=== PATIENT | male | born 1940 | race Caucasian/White ===

== ENCOUNTER 2020-06-24 11:19 | Outpatient (CLI) | payer MEDICARE, BC, SELFPAY ==
--- NOTE | 2020-06-24 11:31 | XR_ITS ---
WS: [id number] Chest with right rib detail, 06/24/2020 Clinical Data: fall with right rib pain Comparison: None. Findings: The lungs show no nodules, masses, or effusions. The heart is normal. No pneumonia or pneumothorax is seen. The aortic arch and descending aorta show calcification and tortuosity. The ribs are intact. No rib fractures seen. No subcutaneous emphysema is present. XR/XR ribs RT mn 3V w [id number] Impression: Negative chest with right rib detail.
--- NOTE | 2020-06-24 11:31 | XR_ITS ---
WS: [id number] Right shoulder, 3 views, 06/24/2020 Clinical Data: Fall with right shoulder pain Comparison: None. Findings: No fractures or dislocations are seen. The AC joint is normal. The adjacent right clavicle, right sca pula and ribs are normal. The soft tissues are unremarkable. XR/XR shoulder RT min 2V* [id number] Impression: Negative right shoulder.
--- NOTE | 2020-06-24 11:31 | XR_ITS ---
WS: [id number] Right elbow, 3 views, 06/24/2020 Clinical Data: fall with swelling and pain right arm Comparison: None. Findings: No fractures or dislocations are seen. The radial head is normal. The soft tissues are unremarkable. There is a small olecranon spur. XR/XR elbow RT min 3V* [id number] Impression: Negative right elbow.
== END 2020-06-24 11:20 | disposition home or self-care (01) ==
LOC: RAD 11:24
PROVIDERS: Visit Provider Family Medicine Adult Medicine
DX: R07.81 Pleurodynia (principal); M25.511 Pain in right shoulder; M79.601 Pain in right arm; M79.89 Other specified soft tissue disorders; W19.XXXA Unspecified fall, initial encounter
CPT/HCPCS: 71101; 73030; 73080

== ENCOUNTER → 2020-11-04 12:36 | Outpatient (BNVA) | payer MEDICARE, BC, SELFPAY | PROVIDERS: PCP Family Medicine Adult Medicine; Visit Provider Family Medicine | DX: E11.51 Type 2 diabetes mellitus with diabetic peripheral angiopathy without gangrene (principal); R19.5 Other fecal abnormalities; I70.209 Unspecified atherosclerosis of native arteries of extremities, unspecified extremity; E78.5 Hyperlipidemia, unspecified; K92.2 Gastrointestinal hemorrhage, unspecified; Z95.5 Presence of coronary angioplasty implant and graft; E78.2 Mixed hyperlipidemia; G40.909 Epilepsy, unspecified, not intractable, without status epilepticus; I10 Essential (primary) hypertension | CPT/HCPCS: 80053; 80061; 83036; 85025 ==

== ENCOUNTER → 2020-11-13 10:40 | Outpatient (BNVA) | payer MEDICARE, BC, SELFPAY | PROVIDERS: PCP Family Medicine Adult Medicine; Visit Provider Family Medicine | DX: E11.51 Type 2 diabetes mellitus with diabetic peripheral angiopathy without gangrene (principal); I70.209 Unspecified atherosclerosis of native arteries of extremities, unspecified extremity; G40.909 Epilepsy, unspecified, not intractable, without status epilepticus; E78.2 Mixed hyperlipidemia; K92.2 Gastrointestinal hemorrhage, unspecified | CPT/HCPCS: 36416; 82962 ==

== ENCOUNTER → 2020-11-27 10:19 | Outpatient (BNVA) | payer MEDICARE, BC, SELFPAY | PROVIDERS: PCP Family Medicine Adult Medicine; Visit Provider Family Medicine | DX: E11.51 Type 2 diabetes mellitus with diabetic peripheral angiopathy without gangrene (principal); I70.209 Unspecified atherosclerosis of native arteries of extremities, unspecified extremity | CPT/HCPCS: 36416; 82962 ==

== ENCOUNTER → 2021-03-16 16:12 | Outpatient (BNVA) | payer MEDICARE, BC, SELFPAY | PROVIDERS: PCP Family Medicine Adult Medicine; Visit Provider Family Medicine | DX: E11.51 Type 2 diabetes mellitus with diabetic peripheral angiopathy without gangrene (principal); I10 Essential (primary) hypertension; I70.209 Unspecified atherosclerosis of native arteries of extremities, unspecified extremity; L02.212 Cutaneous abscess of back [any part, except buttock and flank]; I48.20 Chronic atrial fibrillation, unspecified | CPT/HCPCS: 80053; 83036; 85025 ==

== ENCOUNTER → 2022-04-12 15:21 | Outpatient (BNVA) | payer MEDICARE, BC, SELFPAY | PROVIDERS: PCP Family Medicine Adult Medicine; Visit Provider Family Medicine | DX: E78.5 Hyperlipidemia, unspecified (principal); I10 Essential (primary) hypertension; E11.51 Type 2 diabetes mellitus with diabetic peripheral angiopathy without gangrene; I70.209 Unspecified atherosclerosis of native arteries of extremities, unspecified extremity; L02.212 Cutaneous abscess of back [any part, except buttock and flank] | CPT/HCPCS: 80053; 83036; 85025 ==

== ENCOUNTER → 2022-07-26 10:08 | Outpatient (BNVA) | payer MEDICARE, BC, SELFPAY | PROVIDERS: PCP Family Medicine; Visit Provider Family Medicine | DX: E11.51 Type 2 diabetes mellitus with diabetic peripheral angiopathy without gangrene (principal); I70.209 Unspecified atherosclerosis of native arteries of extremities, unspecified extremity; I10 Essential (primary) hypertension; I48.20 Chronic atrial fibrillation, unspecified; Z95.5 Presence of coronary angioplasty implant and graft; K92.2 Gastrointestinal hemorrhage, unspecified | CPT/HCPCS: 80048; 83036 ==

== ENCOUNTER → 2023-05-04 11:34 | Outpatient (BNVA) | payer MEDICARE, BC, SELFPAY | PROVIDERS: PCP Family Medicine; Visit Provider Clinical Nurse Specialist Adult Health | DX: L02.11 Cutaneous abscess of neck (principal) | CPT/HCPCS: 87070; 87205 ==

== ENCOUNTER → 2023-05-19 11:20 | Outpatient (BNVA) | payer MEDICARE, BC, SELFPAY | PROVIDERS: PCP Family Medicine; Visit Provider Family Medicine | DX: E11.51 Type 2 diabetes mellitus with diabetic peripheral angiopathy without gangrene (principal); I70.209 Unspecified atherosclerosis of native arteries of extremities, unspecified extremity; L02.11 Cutaneous abscess of neck; I10 Essential (primary) hypertension | CPT/HCPCS: 82962 ==

== ENCOUNTER → 2023-09-20 13:01 | Outpatient (BNVA) | payer MEDICARE, BC, SELFPAY | PROVIDERS: PCP Family Medicine; Visit Provider Family Medicine | DX: I10 Essential (primary) hypertension (principal); E11.51 Type 2 diabetes mellitus with diabetic peripheral angiopathy without gangrene; I70.209 Unspecified atherosclerosis of native arteries of extremities, unspecified extremity; I48.20 Chronic atrial fibrillation, unspecified; E13.51 Other specified diabetes mellitus with diabetic peripheral angiopathy without gangrene; B35.9 Dermatophytosis, unspecified | CPT/HCPCS: 80053; 85025 ==

== ENCOUNTER 2023-10-21 09:00 | Emergency (ER) | payer MEDICARE, BC, SELFPAY ==
[2023-10-21 09:04] VITALS: BP 113/72; PULSE 73; RESP 18; O2SAT 94; BMI 3515.0
[2023-10-21 09:30] VITALS: BP 119/68; PULSE 79; RESP 18; O2SAT 95
--- NOTE | 2023-10-21 09:33 | W.ED.NEUROSD ---
HPI - Neuro Symptoms/Deficit General: Chief Complaint: Neuro Symptoms/Deficit Stated Complaint: generalized weakness Time Seen by Provider: 10/21/23 09:10 Source: patient, family and EMS History of Present Illness: This patient initially was presented to the emergency department EMS because there was some concerns about EMS about possible neurologic changes however subsequently his son who cares for him and also is very intimately involved in his care arrived and gave additional illuminating history. He states that his father is at his baseline. He states that when he sits up he seems to be disoriented and slow to respond and then once he recovers from that change in position he is back to his baseline. Son does not note any neurologic symptoms or change from his baseline. He had a prior CVA that is left him with right-sided weakness and some memory changes but again those are unchanged from baseline per son today. He thinks his father is dehydrated. He states he he has not been drinking or eating as much is normal. When questioned the patient admits that he has not been eating or drinking . He denies any pain. Apparently he is also not been taking his medications religiously over the last 2 to 3 days Son admits that it may be time for him to find more comprehensive care for his father as he currently lives alone with family members providing him assistance.. Associated symptoms: Deny chest pain, headache(s), nausea or vomiting Review of Systems Const: Denies: fever(s) or chills Eyes: Denies: change in vision ENMT: Denies: throat pain or odynophagia Card: Denies: chest pain, palpitations, irregular heart rhythm or edema Resp: Denies: dyspnea, productive cough or non-productive cough GI: Denies: abdominal pain, nausea, vomiting or diarrhea : Denies: flank pain, difficulty urinating or dysuria Musc: Denies: neck pain, back pain, extremity pain or extremity swelling Skin/Breast: Denies: rash Neuro: Reports: weakness in extremities (Chronic); Denies: headache(s) or Slurred speech present Psych: Denies: anxiety, depression or mood swings [facility] ED PFSH: Medical History Chronic atrial fibrillation Seizure disorder Diabetes type 2 with atherosclerosis of arteries of extremities HTN (hypertension) Hyperlipemia Hx of stroke without residual deficits (~08/2019) Fall (on) (from) other stairs and steps, initial encounter Surgical History H/O heart artery stent Social History Smoking and tobacco/nicotine status: never used tobacco/nicotine Alcohol intake: former Substance/Drug Use: never NIH stroke score NIHSS: Level Of Consciousness - 1a: 0 Level Of Consciousness Questions - 1b: Both Correct Level Of Consciousness Commands - 1c: Both Correct Best Gaze - 2: Normal Visual Nuñez - 3: No Visual Loss Facial Palsy - 4: Normal Motor Arm Right - 5: No Drift Motor Arm Left - 5: No Drift Motor Leg Right - 6: No Drift Motor Leg Left - 6: No Drift Limb Ataxia - 7: Absent Sensory - 8: Normal Best Language - 9: No Aphasia Dysarthia - 10: Normal Extinction And Inattention - 11: 0 (The patient has baseline right upper and lower extremity weakness and cranial nerve deficits on the right ocular motor primarily.) Score: Total Score: 0 Physical Exam Narrative: EXAM NARRATIVE: The patient is alert no acute distress she makes good eye contact he does have lid lag in his right eye. But he is comfortable and responds appropriately to questions Const: COMMON NORMALS: no acute distress and average body habitus GENERAL APPEARANCE: cooperative HENMT: COMMON NORMALS: normocephalic and atraumatic HEAD & SCALP: normal to inspection, normocephalic and atraumatic FACE & SINUS: normal facial exam and face symmetric Eye: COMMON NORMALS: Equal, round and reactive pupils present EYELID: eyelid abnormality (Lid lag) right upper eyelid PUPIL: Yes Equal, round and reactive pupils present Neck/C-Spine: COMMON NORMALS: full ROM, no lymphadenopathy, supple and No carotid bruits GENERAL: Yes trachea midline Chest: COMMONS NORMALS: normal inspection of the chest and normal palpation of entire chest wall Resp: COMMON NORMALS: normal respiratory effort, No retractions, No use of accessory muscles and clear to auscultation bilaterally AUSCULTATION: clear to auscultation bilaterally Cardio: COMMON NORMALS: regular rate, regular rhythm, No murmurs present (Cardio) and Peripheral pulses 2+ throughout RATE: regular rate RHYTHM: regular rhythm PERIPHERAL PULSES: Peripheral pulses 2+ throughout GI: COMMON NORMALS: Normal to inspection, nondistended, normoactive bowel sounds present, Soft to palpation and non-tender PALPATION: Yes Soft to palpation : COMMON NORMALS: Yes no CVA tenderness and Yes normal external exam BLADDER/KIDNEY EXAM: Yes no CVA tenderness Back/Pelvis: COMMON NORMALS: no CVA tenderness, thoracic and lumbar spine normal to inspection, no thoracic nor lumbar tenderness and thoraco-lumbar ROM normal Extremity: COMMON NORMALS: normal to inspection, full ROM and capillary refill normal Neuro: COMMON NORMALS: moves all extremities, no focal motor deficits and no sensory deficits noted Psych: COMMON NORMALS: mental status grossly normal Skin: COMMON NORMALS: no rashes or lesions noted, no wounds and no petechiae GENERAL SKIN EXAM: no rashes or lesions noted Course Reevaluation(s): Reevaluation #1: Patient was reevaluated after receiving 2 L of IV fluids. He ambulated unaided to the restroom. He subjectively feels better and per his son he is markedly better. There is no new or focal findings on repeat evaluation. At this point the patient is stable and the son is satisfied that we have returned him back to his baseline. He will discussed with his father and other family members regarding long-term care. Stable at this time to be discharged without any evidence of an ongoing emergency medical condition. Time: 12:43 Vital Signs: Vital signs: Vital Signs Pulse Rate 74 10/21/23 11:18 Respiratory Rate 18 10/21/23 11:18 Blood Pressure 127/80 10/21/23 11:18 Pulse Oximetry 96 10/21/23 11:18 Oxygen Delivery Me thod Room Air 10/21/23 09:04 MDM - Neuro Symptoms/Deficit Medical Decision Making This patient was transported to the emergency department at the behest of his son. Apparently he has had decreased intake over the past 2 to 3 days just not feeling well and has subsequently been more weak generally and is also had some near syncope with positional changes. There was no associated focal neurologic symptoms and/or chest pain symptoms palpitations etc. The patient was evaluated and appeared to be comfortable without any change in his neurologic or other clinical exam baselines per interaction with his son who was present during the initial intake evaluation. He was not concerned about any kind of stroke or any other symptoms change but was primarily concerned about possible dehydration. Patient was given 2 L of IV fluids while screening labs were obtained. During the time of hydration he patient remained stable and his laboratories were notable only for a slight elevation in BUN/creatinine suggestive of possible dehydration. After patient received IV fluids he was reevaluated and he subjectively felt better his son collaborated that observation and the patient ambulated about the emergency department unaided without difficulty. At this point the patient is stable without any ongoing symptoms and both he and his son are satisfied and would desire to be discharged at this time. For his additional considerations for long-term care they will entertain a discussion upon return home. All questions were answered and they were both comfortable with the care received and the plan of care. Lab Data I reviewed the patient's lab results. 10/21/23 09:38 10/21/23 09:28 Laboratory Results WBC 6.82 10^3/uL (3.29-11.43) 10/21/23 09:38 RBC 5.19 10^6/uL (3.85-5.65) 10/21/23 09:38 Hgb 15.60 g/dL (11.27-16.99) 10/21/23 09:38 Hct 45.9 % (37-53) 10/21/23 09:38 MCV 88.4 fl (82-101) 10/21/23 09:38 MCH 30.1 pg (27-33) 10/21/23 09:38 MCHC 34.0 g/dL (30-55) 10/21/23 09:38 RDW 12.7 % (12.1-15.1) 10/21/23 09:38 Plt Count 232 10^3/cmm (157-399) 10/21/23 09:38 MPV 10.1 fL (7.4-10.4) 10/21/23 09:38 Neut % (Auto) 59.5 % 10/21/23 09:38 Lymph % (Auto) 29.8 % 10/21/23 09:38 Cass % (Auto) 7.2 % 10/21/23 09:38 Eos % (Auto) 2.2 % 10/21/23 09:38 Baso % (Auto) 0.9 % 10/21/23 09:38 Neut # (Auto) 4.06 10^3/uL (1.8-7.7) 10/21/23 09:38 Lymph # (Auto) 2.0 10^3/uL (0.8-4.8) 10/21/23 09:38 Cass # (Auto) 0.5 10^3/uL (0.2-0.9) 10/21/23 09:38 Eos # (Auto) 0.2 10^3/uL (0.0-0.8) 10/21/23 09:38 Baso # (Auto) 0.1 10^3/uL (0.0-0.1) 10/21/23 09:38 Nucleated RBC % (auto) 0 % 10/21/23 09:38 Nucleated RBCs # 0.0 /100WBC 10/21/23 09:38 Sodium 137 mmol/L (136-145) 10/21/23 09:28 Potassium 4.1 mmol/L (3.5-5.1) 10/21/23 09:28 Chloride 101 mmol/L (98-107) 10/21/23 09:28 Carbon Dioxide 24 mmol/L (22-29) 10/21/23 09:28 Anion Gap 16.1 (5-19) 10/21/23 09:28 BUN 26 mg/dL (8-23) H 10/21/23 09:28 Creatinine 1.3 mg/dL (0.7-1.2) H 10/21/23 09:28 GFR Calculation Not Reportable 10/21/23 09:28 Glucose 195 mg/dL (65-115) H 10/21/23 09:28 Calculated Osmolality 294 mOsm/kg (285-295) 10/21/23 09:28 Calcium 9.1 mg/dL (8.5-10.5) 10/21/23 09:28 Total Bilirubin 0.6 mg/dL (0.15-1.2) 10/21/23 09:28 AST 16 U/L (0-40) 10/21/23 09:28 ALT 16 U/L (0-41) 10/21/23 09:28 Alkaline Phosphatase 142 U/L (40-130) H 10/21/23 09:28 Total Protein 6.7 g/dL (6.6-8.7) 10/21/23 09:28 Albumin 3.5 g/dL (3.5-5.2) 10/21/23 09:28 Globulin 3.2 g/dL (1.3-4.6) 10/21/23 09:28 No radiology studies performed this visit EKG Data EKG 1: I personally reviewed and interpreted this EKG as follows: Interpretation: Contemporaneous review of resting EKG reveals ventricular rate of 70 bpm consistent with sinus rhythm. He has borderline prolonged IN interval, normal QRS duration, normal corrected QT interval. No acute ST-T wave changes. Does have a right bundle branch block pattern. Discharge Plan Discharge Patient Disposition: Home Clinical Impression: Volume depletion, Status post CVA Condition: Stable Prescriptions: No Action nystatin 100,000 unit/gram cream 1 applic topical BID Qty: 30 2RF Xarelto 15 mg tablet 15 mg PO DAILY Qty: 90 2RF Rx Instructions: must administer with evening meal. glimepiride 2 mg tablet 2 mg PO DAILY 90 Days Qty: 90 2RF metformin 500 mg tablet 500 mg PO BID Aspir-81 81 mg Tablet,Delayed Release (Dr/Ec) 81 mg PO DAILY PRN (Reason: unknown) Discharge Orders: Discharge ED (Routine); Ordered 10/21/23 Ordered By: Winston Scales Referrals: Conchis Gonzalez MD [Primary Care Provider] - Patient Instructions: Opioid Safety, Pain Management Activity Restrictions/Additional Instructions: We did not find any evidence of a serious condition while you are in the emergency department. You were given intravenous fluids which improved your symptoms. It is important that you take all your usual prescribed medications as prescribed. Is also important that you drink at least 2 quarts of fluid a day to include sports drinks, water etc. If it anytime you have any new or worsening symptoms you are welcome to return to the emergency department for reevaluation. Coding Level of Care Code ED Cloth Finishing Range Operator Chief for Breanne Justice
--- NOTE | 2023-10-21 09:37 | PC.PHAR ---
pt unable to verify medications-pts son brandy [phone] verified pts medications-pts son states the pts lisinopril 10mg bid filled 01/28/23 90d/s,plavix 75mg daily filled 06/09/23 90d,s,levetiracetam 1000mg bid filled 06/30/23 90d/s,ezetimibe 10mg daily filled 06/05/23 90d,s, and flomax 0.4mg hs filled 06/12/23 90d/s was all dced-pts son states the pt takes aspirin 81mg daily prn states not taken in ~2 weeks-pts son states the pt takes glimepiride 2mg daily last filled 06/29/23 30d/s-metformin plain 500mg bid filled 03/04/23 90d,s-and xarelto 15mg daily filled 06/29/23 90d/s and uses nystatin 100,00 cream bid-notes are made in the pharmacy comments
[2023-10-21 09:42] LABS: Basophils # 0.1 10^3/uL (0.0-0.1); Basophils % 0.9 %; Eosinophils # 0.2 10^3/uL (0.0-0.8); Eosinophils % 2.2 %; Hematocrit 45.9 % (37-53); Lymphocytes % 29.8 %; Mean Corpuscular Hemoglobin 30.1 pg (27-33); Mean Corpuscular Volume 88.4 fl (82-101); Mean Platelet Volume 10.1 fL (7.4-10.4); Monocytes # 0.5 10^3/uL (0.2-0.9); Monocytes % 7.2 %; Neutrophils # 4.06 10^3/uL (1.8-7.7); Neutrophils % 59.5 %; Nucleated Red Blood Cells % 0 %; Platelet Count 232 10^3/cmm (157-399); Red Blood Count 5.19 10^6/uL (3.85-5.65); Red Cell Distribution Width 12.7 % (12.1-15.1); White Blood Count 6.82 10^3/uL (3.29-11.43)
[2023-10-21] MEDS: lactated ringers 1,000 ML 999 ML IV ×2 (09:48→11:12)
[2023-10-21 09:59] LABS: Alanine Aminotransferase 16 U/L (0-41); Albumin Level 3.5 g/dL (3.5-5.2); Alkaline Phosphatase 142 U/L (40-130); Anion Gap 16.1 (5-19); Aspartate Amino Transferase 16 U/L (0-40); Blood Urea Nitrogen 26 mg/dL (8-23); Calcium 9.1 mg/dL (8.5-10.5); Carbon Dioxide 24 mmol/L (22-29); Chloride 101 mmol/L (98-107); Creatinine Clr Calc Pharmacy 52.3378; Globulin 3.2 g/dL (1.3-4.6); Glucose 195 mg/dL (65-115); Osmolality Calculated 294 mOsm/kg (285-295); Potassium 4.1 mmol/L (3.5-5.1); Sodium 137 mmol/L (136-145); Total Bilirubin 0.6 mg/dL (0.15-1.2); Total Protein 6.7 g/dL (6.6-8.7)
[2023-10-21 10:08] VITALS: BP 143/86; PULSE 70; RESP 18; O2SAT 99
--- NOTE | 2023-10-21 10:27 | ECG_ITS ---
[facility] Test Date: 2023-10-21 Pat Name: Neno Rodgers Department: Room: Gender: Male Associate Professor Of Archaeology: : 1940 Requested By: Winston Scales Order Number: [id number] Lowery MD: Patricia Stahl M.D. Measurements Intervals [place] Rate: 70 P: 72 PA: 204 QRS: 6 QRSD: 134 T: 41 QT: 406 QTc: 438 Interpretive Statements SINUS RHYTHM INDETERMINATE AXIS Possible old inferior wall NH RIGHT BUNDLE BRANCH BLOCK [120+ ms QRS DURATION, UPRIGHT V1, 40+ ms S IN I/aVL/V4/V5/V6] No previous ECG available for comparison Electronically Signed On 10-21-2023 17:40:12 CHIEF CREDIT OFFICER by Patricia Stahl M.D. [id number] f
[2023-10-21 11:18] VITALS: BP 127/80; PULSE 74; RESP 18; O2SAT 96
[2023-10-21 12:51] VITALS: BP 147/88; PULSE 77; RESP 18; O2SAT 96
== END 2023-10-21 13:32 | disposition home or self-care (01) ==
PROVIDERS: Emergency Provider Emergency Medicine; PCP Family Medicine
DX: E86.9 Volume depletion, unspecified (principal); Z86.73 Personal history of transient ischemic attack (TIA), and cerebral infarction without residual deficits; Z79.84 Long term (current) use of oral hypoglycemic drugs; Z79.82 Long term (current) use of aspirin; E11.9 Type 2 diabetes mellitus without complications; I10 Essential (primary) hypertension; E78.5 Hyperlipidemia, unspecified
CPT/HCPCS: 80053; 85025; 93005; 96360; 96361; 99284; J7120

== ENCOUNTER 2023-11-03 08:56 | Emergency (ER) | payer MEDICARE, BC, SELFPAY ==
[2023-11-03 09:08] VITALS: BP 144/86; PULSE 79; RESP 17; TEMP 36.4; O2SAT 97; BMI 25.7
[2023-11-03 09:29] VITALS: BP 130/81; PULSE 80; O2SAT 97
--- NOTE | 2023-11-03 09:29 | XR_ITS ---
WS: [id number] Portable AP upright chest, 11/03/2023 Clinical Data: dyspnea/cough Comparison: PA chest with right rib detail, 06/24/2020 Findings: No nodules, masses or effusions are seen. The heart is normal. The pulmonary vascularity is not increased. No pneumonia or pneumothorax is seen. The aortic arch and descending thoracic aorta s how calcification and tortuosity. Impression: Atherosclerosis.
--- NOTE | 2023-11-03 09:29 | ECG_ITS ---
[facility] Test Date: 2023-11-03 Pat Name: Neno Rodgers Department: Room: Gender: Male Coordinator Of Placement: : 1940 Requested By: Dilan De Leon Order Number: [id number] Sebastián MD: Patricia Stahl M.D. Measurements Intervals [place] Rate: 77 P: 0 [place]: 194 QRS: -85 QRSD: 136 T: 47 QT: 402 QTc: 457 Interpretive Statements SINUS RHYTHM RIGHT BUNDLE BRANCH BLOCK [120+ ms QRS DURATION, UPRIGHT V1, 40+ ms S IN I/aVL/V4/V5/V6] INFERIOR MYOCARDIAL INFARCTION , PROBABLY OLD [40+ ms Q WAVE AND/OR ST/T ABNORMALITY IN II/aVF] Compared to ECG 10/21/2023 09:16:47 Indeterminate axis no longer present Myocardial infarct finding still present Electronically Signed On 11-03-2023 22:09:12 CDT by Patricia Stahl M.D. [id number] f
[2023-11-03 10:00] VITALS: BP 120/75; PULSE 71; O2SAT 90
--- NOTE | 2023-11-03 10:16 | ED_ITS ---
HPI - General Adult General: Chief complaint: General Medical Stated complaint: bp high Time Seen by Provider: 11/03/23 09:24 Source: patient Mode of arrival: ambulatory History of Present Illness: 82-year-old male presents emergency room with complaining of elevated blood pressure. He presents with his son his son is adamant to be seen patient actually does not wish to be seen and actually ultimately ended up refusing all the lab work. Patient is awake alert and oriented denies any chest pain or abdominal pain. He has had difficulty was gait and balance with this been ongoing thing for several weeks. Onset (ago): week(s) Relieving factors: movement Exacerbating factors: none Associated symptoms: Deny chest pain, dyspnea or rash Treatments prior to arrival: none Review of Systems Const: Denies: fever(s) or chills Card: Denies: chest pain Resp: Denies: dyspnea GI: Denies: abdominal pain : Denies: dysuria, urinary frequency or urinary urgency Musc: Denies: neck pain or back pain Skin/Breast: Denies: rash PFSH ED PFSH: Medical History Chronic atrial fibrillation Seizure disorder Diabetes type 2 with atherosclerosis of arteries of extremities HTN (hypertension) Hyperlipemia Hx of stroke without residual deficits (~08/2019) Fall (on) (from) other stairs and steps, initial encounter Surgical History H/O heart artery stent Social History Smoking and tobacco/nicotine status: never used tobacco/nicotine Alcohol intake: former Substance/Drug Use: never Physical Exam Const: COMMON NORMALS: no acute distress GENERAL APPEARANCE: cooperative and comfortable ORIENTATION/CONSCIOUSNESS: Yes awake, Yes oriented to person, Yes oriented to place and Yes oriented to time HENMT: COMMON NORMALS: normocephalic, atraumatic and hearing grossly normal bilaterally HEAD & SCALP: normocephalic and atraumatic Resp: COMMON NORMALS: normal respiratory effort, No retractions, No use of accessory muscles and clear to auscultation bilaterally AUSCULTATION: clear to auscultation bilaterally Cardio: COMMON NORMALS: regular rate, regular rhythm and No murmurs present (Cardio) RATE: regular rate RHYTHM: regular rhythm GI: COMMON NORMALS: Soft to palpation and No hepatosplenomegaly present AUSCULTATION: Yes normoactive bowel sounds PALPATION: Yes Soft to palpation, No Tenderness to palpation present (GI), No Guarding due to palpation present (GI) and Yes No hepatosplenomegaly present Extremity: COMMON NORMALS: normal to inspection, capillary refill normal, no clubbing, cyanosis or edema, no calf tenderness and no pedal edema Neuro: SENSORIUM/ORIENTATION: Yes oriented to person, Yes oriented to place and Yes oriented to time Skin: COMMON NORMALS: no rashes or lesions noted GENERAL SKIN EXAM: no rashes or lesions noted Course Vital Signs: Vital signs: Vital Signs Temperature 97.5 F L 11/03/23 09:08 Pulse Rate 74 11/03/23 12:30 Respiratory Rate 17 11/03/23 09:08 Blood Pressure 160/86 11/03/23 12:30 Pulse Oximetry 97 11/03/23 12:30 Oxygen Delivery Me thod Room Air 11/03/23 12:30 MDM - General Adult Medical Decision Making 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 I think this is what is causing his symptoms addition probably aggravated by his hypertension. Will start him on antihypertensive metoprolol succinate 12.5 mg once daily and lisinopril 10 mg daily. Have him follow-up with his primary care doctor within the next week return if is further problems. Offered to try again with lab work patient refuses he will not allow any further workup. Medical Records I reviewed the patient's medical records. Lab Data I reviewed the patient's lab results. Radiology Impressions Head CT 11/03/23 12:07 IMPRESSION: 1. No acute findings. 2. Cerebral atrophy is noted along with chronic ischemic changes. All radiology interpretation(s) finalized by discharge Discharge Plan Discharge Patient Disposition: Home Clinical Impression: History of cerebellar stroke HTN (hypertension) Qualifiers: Hypertension type: essential hypertension Qualified Code(s): I10 - Essential (primary) hypertension Condition: Stable Prescriptions: New lisinopril 10 mg tablet 10 mg PO DAILY Qty: 30 0RF Toprol XL 25 mg tablet extended release 24 hr 12.5 mg PO DAILY Qty: 30 0RF No Action Xarelto 15 mg tablet 15 mg PO DAILY Qty: 90 2RF Rx Instructions: must administer with evening meal. glimepiride 2 mg tablet 2 mg PO DAILY 90 Days Qty: 90 2RF clopidogrel 75 mg tablet 75 mg PO DAILY levetiracetam 1,000 mg tablet 1,000 mg PO BID Men's 50 Plus Daily Formula 400-20-370 mcg Tablet 1 tab PO DAILY metformin 500 mg tablet 500 mg PO BID aspirin [Aspir-81] 81 mg Tablet,Delayed Release (Dr/Ec) 81 mg PO DAILY Discharge Orders: Discharge ED (Routine); Ordered 11/03/23 Ordered By: Dilan Cherry Referrals: Conchis Gonzalez MD [Primary Care Provider] - Discharge Diet: Usual diet Discharge Activity: Resume usual activity Patient Instructions: Opioid Safety, Pain Management Activity Restrictions/Additional Instructions: Thank you for choosing [facility] for your healthcare needs today. Please realize this is an emergency room and that we are providing you with a medical screening exam and this may not be complete and all inclusive of all the testing and or work up that you may need to determine your ailment or severity of your illness. It is very important that you follow up as instructed or that you return to the Emergency Department should you have concerns or if your condition changes or worsens in any way. You are seen in the emergency room with elevated blood pressure and difficulty with balance. Is evidence of a fairly significant previous cerebellar stroke. This is likely what is causing your symptoms. Recommend that you start Toprol- XL 12 and half milligrams daily and lisinopril 10 mg daily for your blood pressure and recheck with your primary care doctor within the next week. Coding Level of Care Code ED Feed Mill Operator for Breanne Justice
--- NOTE | 2023-11-03 11:29 | ECG_ITS ---
[facility] Test Date: 2023-11-03 Pat Name: Neno Rodgers Department: Room: Gender: Male Credit Administration Specialist: : 1940 Requested By: Dilan De Leon Order Number: [id number] Sebastián MD: Patricia Stahl M.D. Measurements Intervals [place] Rate: 66 P: 81 [place]: 226 QRS: -55 QRSD: 88 T: 0 QT: 188 QTc: 198 Interpretive Statements SINUS RHYTHM WITH FIRST DEGREE AV BLOCK WITH OCCASIONAL VENTRICULAR PREMATURE COMPLEXES POSSIBLE RIGHT VENTRICULAR CONDUCTION DELAY [RSR (QR) IN V1/V2] Compared to ECG 11/03/2023 09:05:01 Ventricular premature complex(es) now present First degree AV block now present Right bundle-branch block no longer present Myocardial infarct finding no longer present Electronically Signed On 11-03-2023 22:16:06 CDT by Patricia Stahl M.D. [id number]
[2023-11-03 12:00] VITALS: BP 157/81; PULSE 73; O2SAT 95
[2023-11-03 12:06] VITALS: BP 157/81; BP 160/86; BP 170/100; PULSE 68; PULSE 71; PULSE 77
--- NOTE | 2023-11-03 12:07 | CTR_ITS ---
PROCEDURE INFORMATION: Exam: CT Head Without Contrast Exam date and time: 11/03/2023 12:20 PM Age: 82 years old Clinical indication: Weakness, extremity; Additional info: Weakness, HX stroke, frequent falls TECHNIQUE: Imaging protocol: Computed tomography of the head without contrast. Radiation optimization: All CT scans at this facility use at least one of these dose optimization techniques: automated exposure control; mA and/or kV adjustment per patient size (includes targeted exams where dose is matched to clinical indication); or iterative reconstruction. COMPARISON: No relevant prior studies available. RADIATION DOSE METRICS: Total DLP (mGy-cm): 1136.68 FINDINGS: Brain: There is a large old infarct involving much of the right cerebellar hemisphere. An old infarct also involves the left occipital lobe.There is prominent chronic periventricular white matter ischemic change. There is no evidence of mass effect, hemorrhage or infarct. Mild diffuse cerebral atrophy is noted. Cerebral ventricles: No ventriculomegaly. No midline shift. Paranasal sinuses: Visualized sinuses are unremarkable. No fluid levels. Mastoid air cells: Visualized mastoid air cells are well aerated. Bones/joints: Unremarkable. No acute fracture. Soft tissues: Unremarkable. CT/CT head wo con* [id number] IMPRESSION: 1. No acute findings. 2. Cerebral atrophy is noted along with chronic ischemic changes.
[2023-11-03 12:30] VITALS: BP 160/86; PULSE 74; O2SAT 97
== END 2023-11-03 12:59 | disposition home or self-care (01) ==
PROVIDERS: Emergency Provider Family Medicine; PCP Family Medicine
DX: I10 Essential (primary) hypertension (principal); Z86.73 Personal history of transient ischemic attack (TIA), and cerebral infarction without residual deficits; Z79.02 Long term (current) use of antithrombotics/antiplatelets; Z79.84 Long term (current) use of oral hypoglycemic drugs; Z79.82 Long term (current) use of aspirin; E11.9 Type 2 diabetes mellitus without complications; E78.5 Hyperlipidemia, unspecified
CPT/HCPCS: 70450; 71045; 93005; 99285

== ENCOUNTER 2023-11-16 11:05 | Outpatient (CLI) | payer MEDICARE, BC, SELFPAY ==
--- NOTE | 2023-11-16 11:45 | USCV_ITS ---
Neno Rodgers Age: 82 Gender: M : 1940 Exam Date: 11/16/2023 11:16 Ordering Phys: Conchis Gonzalez MD Technologist: CT Exam [facility] [facility] Indication: sob BP: 130 / 80 HR: 70 Rhythm: Sinus Technical Quality: Adequate MEASUREMENTS (Male / Female) Normal Values 2D ECHO LVOT Diameter 2.4 cm LV Ejection Fraction MOD 2C 69.7 % LV Ejection Fraction 2C AL 69.7 % LA Diameter 4.3 cm RA Systolic Volume 4C AL 36.0 ml RA Systolic Volume 4C MOD 34.4 ml Aorta at Sinotubular Diameter 2.8 cm IVC Diameter 1.7 cm M-MODE LA Ao Ratio MM 1.6 AV Cusp Separation MM 2.2 cm DOPPLER AV Peak Velocity 195.0 cm/s LVOT Peak Velocity 73.0 cm/s AV Area Cont Eq vti 1.9 cm squared AV Area Cont Eq pk 1.7 cm squared MV Peak Velocity 77.0 cm/s MV Area PHT 3.8 cm squared Mitral E to A Ratio 0.8 TV Peak Velocity 148.0 cm/s TR Peak Velocity 205.0 cm/s TR Peak Gradient 16.8 mmHg TV Peak E Velocity 79.0 cm/s Right Atrial Pressure 3.0 mmHg Pulmonary Artery Systolic Pressu 19.8 mmHg PV Peak Velocity 106.0 cm/s FINDINGS Left Ventricle Normal left ventricular size and systolic function, EF 70%.moderate left ventricular hypertrophy. Grade I/IV diastolic dysfunction (abnormal relaxation filling pattern), normal to mildly elevated filling pressures. Right Ventricle The right ventricle is normal in size and function. Right Atrium The right atrium is normal in size. Left Atrium Mildly increased left atrial size. Mitral Valve Trace mitral valve regurgitation. Aortic Valve Aortic valve sclerosis. Tricuspid Valve No gross abnormalities noted.trace tricuspid valve regurgitation. Pulmonic Valve Pericardium No pericardial effusion. Aorta Normal aortic annulus size. IVC Normal inferior vena cava. CONCLUSIONS Normal left ventricular size and systolic function, EF 70%.moderate left ventricular hypertrophy. Grade I/IV diastolic dysfunction (abnormal relaxation filling pattern), normal to mildly elevated filling pressures. Mildly increased left atrial size. Features of aortic valve sclerosis Trace tricuspid valve regurgitation. No similar previous studies are available for comparison Dr Patricia Stahl MD [facility] (Electronically Signed) Final Date: 17 November 2023 09:20 S
== END 2023-11-16 11:06 | disposition home or self-care (01) ==
LOC: RAD 11:05
PROVIDERS: PCP Family Medicine; Visit Provider Family Medicine
DX: Z95.5 Presence of coronary angioplasty implant and graft (principal); I48.20 Chronic atrial fibrillation, unspecified; Z86.73 Personal history of transient ischemic attack (TIA), and cerebral infarction without residual deficits; I51.7 Cardiomegaly
CPT/HCPCS: 93306

== ENCOUNTER 2024-01-10 07:26 | Emergency (ER) | payer MEDICARE, BC, SELFPAY ==
--- NOTE | 2024-01-10 07:26 | XR_ITS ---
WS: [id number] PORTABLE CHEST HISTORY: dyspnea/cough COMPARISON: 11/03/2023 Very slight elevation RIGHT hemidiaphragm. Lungs are clear and well expanded. No pleural effusion or pneumothorax. Cardiac size: Normal. Mediastinum/Aorta: Mild atherosclerosis aorta. Similar to the prior study. Thoracic spondylosis and mild AC joint arthritis. XR/XR chest 1V portable [id number] IMPRESSION: 1. No pneumonia. Normal vasculature. 2. Mild atherosclerosis thoracic aorta.
[2024-01-10 07:28] VITALS: BP 138/79; PULSE 82; RESP 16; TEMP 36.7; O2SAT 96
--- NOTE | 2024-01-10 07:35 | ECG_ITS ---
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 Measurements Intervals [place] Rate: 82 P: 85 LA: 221 QRS: -28 QRSD: 80 T: 37 QT: 365 QTc: 427 Interpretive Statements SINUS RHYTHM WITH FIRST DEGREE AV BLOCK POSSIBLE RIGHT VENTRICULAR CONDUCTION DELAY [RSR (QR) IN V1/V2] Compared to ECG 11/03/2023 11:32:51 No significant changes Electronically Signed On 01-10-2024 16:50:00 CDT by Haim Pimentel M.D. [id number]
--- NOTE | 2024-01-10 07:45 | ED_ITS ---
HPI - Syncope 2 General: Chief Complaint: Syncope Stated Complaint: SYNCOPE Source: patient Mode of arrival: ambulatory History of Present Illness: 83-year-old male presents to the emergen cy room after falling at home.. He previously had a stroke left him with right-sided residual deficits. He has not undergone any therapy 100 time to time he notices worsening weakening of his right side. This particularly affects his leg. He lives at home his son is his primary caregiver. He needed to go to the bathroom he states that usually when he gets around the house he leans against the wall he does have a walker but he does not use it regularly. Today he slipped and fell to the floor he did not strike his head there is no loss consciousness he has multiple falls associated the weakness of this leg. He has no neurodeficits. Son is in the emergency room with the patient endorses that he does from time to time have worsening of his right-sided deficits. No associated chest pain abdominal pain or shortness of breath. Onset (ago): minute(s) Witnessed: Yes - by Bystander Associated symptoms: Deny abdominal pain, chest pain or fever(s) History: other (History of CVA right-sided deficits) Treatments prior to arrival: none Review of Systems 2 Const: Denies: fever(s) or chills Card: Denies: chest pain Resp: Denies: dyspnea GI: Denies: abdominal pain : Denies: dysuria, urinary frequency or urinary urgency Musc: Denies: neck pain or back pain Skin/Breast: Denies: rash PFSH ED 2 PFSH: Medical History Chronic atrial fibrillation Seizure disorder Diabetes type 2 with atherosclerosis of arteries of extremities HTN (hypertension) Hyperlipemia Hx of stroke without residual deficits (~08/2019) Fall (on) (from) other stairs and steps, initial encounter Surgical History H/O heart artery stent Social History Smoking and tobacco/nicotine status: never used tobacco/nicotine Alcohol intake: former Substance/Drug Use: never Physical Exam 2 Const: COMMON NORMALS: no acute distress GENERAL APPEARANCE: cooperative and comfortable ORIENTATION/CONSCIOUSNESS: Yes awake, Yes oriented to person, Yes oriented to place and Yes oriented to time HENMT: COMMON NORMALS: normocephalic, atraumatic and hearing grossly normal bilaterally HEAD & SCALP: normocephalic and atraumatic Resp: COMMON NORMALS: normal respiratory effort, No retractions, No use of accessory muscles and clear to auscultation bilaterally AUSCULTATION: clear to auscultation bilaterally Cardio: COMMON NORMALS: regular rate, regular rhythm and No murmurs present (Cardio) RATE: regular rate RHYTHM: regular rhythm GI: COMMON NORMALS: Soft to palpation and No hepatosplenomegaly present A USCULTATION: Yes normoactive bowel sounds PALPATION: Yes Soft to palpation, No Tenderness to palpation present (GI), No Guarding due to palpation present (GI) and Yes No hepatosplenomegaly present Extremity: COMMON NORMALS: normal to inspection, capillary refill normal, no clubbing, cyanosis or edema, no calf tenderness and no pedal edema Neuro: SENSORIUM/ORIENTATION: Yes oriented to person, Yes oriented to place and Yes oriented to time Skin: COMMON NORMALS: no rashes or lesions noted GENERAL SKIN EXAM: no rashes or lesions noted Course 2 Vital Signs: Vital signs: Vital Signs Temperature 98.1 F 01/10/24 07:28 Pulse Rate 84 01/10/24 11:32 Respiratory Rate 18 01/10/24 11:32 Blood Pressure 138/83 01/10/24 12:33 Pulse Oximetry 96 01/10/24 12:33 Oxygen Delivery Me thod Room Air 01/10/24 12:33 MDM - Syncope Medical Decision Making Ground-level mechanical fall due to the previous CVA deficits. He has no new deficits at this time. Patient has no evidence of trauma to his head. Labs and imaging reviewed with the patient. EKG initially shows ectopic atrial rhythm second EKG shows sinus rhythm no acute changes with the either EKG. Troponins negative patient asymptomatic. Home health referral for PT OT and assistance with ADLs and meds at home. Antibiotic called in later for his mild cystitis. Started on cefdinir pending culture result. Medical Records I reviewed the patient's medical records. Lab Data I reviewed the patient's lab results. 01/10/24 08:45 01/10/24 08:45 Radiology Impressions Chest X-Ray 01/10/24 07:26 IMPRESSION: 1. No pneumonia. Normal vasculature. 2. Mild atherosclerosis thoracic aorta. Laboratory Results WBC 11.25 10^3/uL (3.29-11.43) 01/10/24 08:45 RBC 5.22 10^6/uL (3.85-5.65) 01/10/24 08:45 Hgb 15.60 g/dL (11.27-16.99) 01/10/24 08:45 Hct 47.3 % (37-53) 01/10/24 08:45 MCV 90.6 fl (82-101) 01/10/24 08:45 MCH 29.9 pg (27-33) 01/10/24 08:45 MCHC 33.0 g/dL (30-55) 01/10/24 08:45 RDW 12.6 % (12.1-15.1) 01/10/24 08:45 Plt Count 212 10^3/cmm (157-399) 01/10/24 08:45 MPV 10.9 fL (7.4-10.4) H 01/10/24 08:45 Neut % (Auto) 85.1 % 01/10/24 08:45 Lymph % (Auto) 7.1 % 01/10/24 08:45 [place] % (Auto) 5.9 % 01/10/24 08:45 Eos % (Auto) 1.1 % 01/10/24 08:45 Baso % (Auto) 0.4 % 01/10/24 08:45 Neut # (Auto) 9.57 10^3/uL (1.8-7.7) H 01/10/24 08:45 Lymph # (Auto) 0.8 10^3/uL (0.8-4.8) 01/10/24 08:45 [place] # (Auto) 0.7 10^3/uL (0.2-0.9) 01/10/24 08:45 Eos # (Auto) 0.1 10^3/uL (0.0-0.8) 01/10/24 08:45 Baso # (Auto) 0.1 10^3/uL (0.0-0.1) 01/10/24 08:45 Nucleated RBC % (auto) 0 % 01/10/24 08:45 Nucleated RBCs # 0.0 /100WBC 01/10/24 08:45 Sodium 135 mmol/L (136-145) L 01/10/24 08:45 Potassium 4.8 mmol/L (3.5-5.1) 01/10/24 08:45 Chloride 98 mmol/L (98-107) 01/10/24 08:45 Carbon Dioxide 24 mmol/L (22-29) 01/10/24 08:45 Anion Gap 17.8 (5-19) 01/10/24 08:45 BUN 31 mg/dL (8-23) H 01/10/24 08:45 Creatinine 1.5 mg/dL (0.7-1.2) H 01/10/24 08:45 GFR Calculation Not Reportable 01/10/24 08:45 Glucose 329 mg/dL (65-115) H 01/10/24 08:45 Calculated Osmolality 299 mOsm/kg (285-295) H 01/10/24 08:45 Lactic Acid 2.1 mmol/L (0.5-2.2) 01/10/24 08:45 Lactic Acid (Sepsis) 2.0 mmol/L (0.5-2.2) 01/10/24 11:45 Calcium 9.2 mg/dL (8.5-10.5) 01/10/24 08:45 Magnesium 2.1 mg/dL (1.7-2.3) 01/10/24 08:45 Total Bilirubin 0.7 mg/dL (0.15-1.2) 01/10/24 08:45 AST 14 U/L (0-40) 01/10/24 08:45 ALT 12 U/L (0-41) 01/10/24 08:45 Alkaline Phosphatase 159 U/L (40-130) H 01/10/24 08:45 Creatine Kinase 34 U/L (39-308) L 01/10/24 08:45 Troponin T Baseline 33 ng/L (0-15) H 01/10/24 08:45 Troponin T 120 Minute 33.66 ng/L (0-15) H 01/10/24 11:00 Delta Troponin T 0.66 ABS# (0-10) 01/10/24 11:00 Total Protein 7.1 g/dL (6.6-8.7) 01/10/24 08:45 Albumin 4.0 g/dL (3.5-5.2) 01/10/24 08:45 Globulin 3.1 g/dL (1.3-4.6) 01/10/24 08:45 Urine Color Yellow (Yellow) 01/10/24 11:30 Urine Appearance Clear (CLEAR) 01/10/24 11:30 Urine pH 5 (5-7) 01/10/24 11:30 Ur Specific [place] 1.010 (1.005-1.030) 01/10/24 11:30 Urine Protein 3+ (Negative) H 01/10/24 11:30 Urine Glucose (UA) 4+ (Normal) H 01/10/24 11:30 Urine Ketones 1+ (Negative) H 01/10/24 11:30 Urine Blood Neg (Negative) 01/10/24 11:30 Urine Nitrate Negative (Negative) 01/10/24 11:30 Urine Bilirubin Neg (Negative) 01/10/24 11:30 Urine Urobilinogen 1 mg/dL (Negative) H 01/10/24 11:30 Ur Leukocyte Esterase Trace (Negative) H 01/10/24 11:30 Urine RBC 0-4 /hpf (0-2) H 01/10/24 11:30 Urine WBC 15-25 /hpf (0-5) H 01/10/24 11:30 Ur Squamous Epith Cells 0-4 /hpf (0-5) H 01/10/24 11:30 Ur Transition Epith Cell 0-4 /hpf 01/10/24 11:30 Amorphous Sediment Not Reportable 01/10/24 11:30 Urine Bacteria Trace /hpf (NONE) 01/10/24 11:30 Hyaline Casts 0-4 /lpf H 01/10/24 11:30 Urine Mucus None /hpf 01/10/24 11:30 Urine Yeast 1+ /hpf H 01/10/24 11:30 All radiology interpretation(s) finalized by discharge Discharge Plan Discharge Patient Disposition: Home Clinical Impression: Fall, Hx of completed stroke, Weakness of right lower extremity, Cystitis Condition: Stable Prescriptions: New cefdinir 300 mg capsule 300 mg PO BID Qty: 14 0RF No Action glimepiride 2 mg tablet 2 mg PO DAILY 90 Days Qty: 90 2RF clopidogrel 75 mg tablet 75 mg PO DAILY levetiracetam 1,000 mg tablet 1,000 mg PO BID Men's 50 Plus Daily Formula 400-20-370 mcg Tablet 1 tab PO DAILY lisinopril 10 mg tablet 10 mg PO DAILY Qty: 30 0RF metoprolol succinate [Toprol XL] 25 mg tablet extended release 24 hr 12.5 mg PO DAILY Qty: 30 0RF nystatin 100,000 unit/gram cream 1 applic TOPICAL BID PRN (Reason: Skin Irritation) aspirin [Aspir-81] 81 mg Tablet,Delayed Release (Dr/Ec) 81 mg PO DAILY Discharge Orders: Discharge ED (Routine); Ordered 01/10/24 Ordered By: Dilan Cherry Referrals: Conchis Gonzalez MD [Primary Care Provider] - Discharge Diet: Usual diet Discharge Activity: Resume usual activity Patient Instructions: Opioid Safety, Pain Management Activity Restrictions/Additional Instructions: Thank you for choosing [facility] for your healthcare needs today. Please realize this is an emergency room and that we are providing you with a medical screening exam and this may not be complete and all inclusive of all the testing and or work up that you may need to determine your ailment or severity of your illness. It is very important that you follow up as instructed or that you return to the Emergency Department should you have concerns or if your condition changes or worsens in any way. You are seen today with right-sided weakness. On your exam and your CT there is no evidence of acute stroke. Suspect that this is an exacerbation of your previous stroke. We reviewed your case with the on-call neurologist and they agreed to. Recommend that you follow-up with your primary care doctor will refer you to home health for assistance with your activities of daily living and physical therapy to improve your function and help maintain your gait and ability to get around. Coding Level of Care Code ED Tower Equipment Repairer for Breanne Justice
[2024-01-10 08:55] LABS: Basophils # 0.1 10^3/uL (0.0-0.1); Basophils % 0.4 %; Eosinophils # 0.1 10^3/uL (0.0-0.8); Eosinophils % 1.1 %; Hematocrit 47.3 % (37-53); Lymphocytes # 0.8 10^3/uL (0.8-4.8); Lymphocytes % 7.1 %; Mean Corpuscular Hemoglobin 29.9 pg (27-33); Mean Corpuscular Volume 90.6 fl (82-101); Mean Platelet Volume 10.9 fL (7.4-10.4); Monocytes # 0.7 10^3/uL (0.2-0.9); Monocytes % 5.9 %; Neutrophils # 9.57 10^3/uL (1.8-7.7); Neutrophils % 85.1 %; Nucleated Red Blood Cells % 0 %; Platelet Count 212 10^3/cmm (157-399); Red Blood Count 5.22 10^6/uL (3.85-5.65); Red Cell Distribution Width 12.6 % (12.1-15.1); White Blood Count 11.25 10^3/uL (3.29-11.43)
[2024-01-10 09:10] VITALS: O2SAT 96
[2024-01-10 09:16] LABS: Alanine Aminotransferase 12 U/L (0-41); Alkaline Phosphatase 159 U/L (40-130); Anion Gap 17.8 (5-19); Aspartate Amino Transferase 14 U/L (0-40); Blood Urea Nitrogen 31 mg/dL (8-23); Calcium 9.2 mg/dL (8.5-10.5); Carbon Dioxide 24 mmol/L (22-29); Chloride 98 mmol/L (98-107); Creatine Phosphokinase 34 U/L (39-308); Creatinine Clr Calc Pharmacy 44.2681; Globulin 3.1 g/dL (1.3-4.6); Glucose 329 mg/dL (65-115); Magnesium 2.1 mg/dL (1.7-2.3); Osmolality Calculated 299 mOsm/kg (285-295); Potassium 4.8 mmol/L (3.5-5.1); Sodium 135 mmol/L (136-145); Total Bilirubin 0.7 mg/dL (0.15-1.2); Total Protein 7.1 g/dL (6.6-8.7); Troponin(5th) Baseline 33 ng/L (0-15)
[2024-01-10 09:18] LABS: Lactic Sepsis W/Reflex 2.1 mmol/L (0.5-2.2)
--- NOTE | 2024-01-10 09:49 | ECG_ITS ---
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 Measurements Intervals [place] Rate: 83 P: 147 HI: 193 QRS: -74 QRSD: 143 T: 103 QT: 386 QTc: 454 Interpretive Statements ECTOPIC ATRIAL RHYTHM LEFT AXIS DEVIATION [QRS AXIS < -30] RIGHT BUNDLE BRANCH BLOCK [120+ ms QRS DURATION, UPRIGHT V1, 40+ ms S IN I/aVL/V4/V5/V6] POSSIBLE ANTERIOR MYOCARDIAL INFARCTION , OF INDETERMINATE AGE [30 ms Q WAVE IN V3/V4, OR R < 0.2 mV IN V4] Compared to ECG 01/10/2024 07:35:28 Ectopic atrial rhythm now present Left-axis deviation now present Right bundle-branch block now present Myocardial infarct finding now present Sinus rhythm no longer present First degree AV block no longer present Electronically Signed On 01-10-2024 16:52:18 CDT by Haim Pimentel M.D. [id number]
--- NOTE | 2024-01-10 10:08 | PC.PHAR ---
PTS' SON STATES PT NO LONGER TAKING METFORMIN 500MG OR XARELTO 15MG. PT ALSO STOPPED TAKING ALL OTHER MEDICATIONS 2 WEEKS AGO. ACCORDING TO FILL DATES-PT SHOULD BE OUT OF EVERY MEDICATION HE NORMALLY TAKES.
[2024-01-10 10:40] LABS: Reflex Lactate Order REFLEX LACTIC ORDERD
[2024-01-10 11:26] VITALS: BP 135/85; PULSE 84; O2SAT 95
[2024-01-10 11:32] VITALS: PULSE 84; RESP 18; O2SAT 96
[2024-01-10 11:33] LABS: Troponin 5 2HR 33.66 ng/L (0-15); Troponin 5 2HR Delta 0.66 ABS# (0-10)
[2024-01-10 11:47] LABS: Bilirubin Urine Neg (Negative); Blood Urine Neg (Negative); Glucose Urine UA 4+ (Normal); Ketones Urine 1+ (Negative); Nitrate Urine Negative (Negative); Protein Urine 3+ (Negative); Urine Appearance Clear (CLEAR); Urine Color Yellow (Yellow); pH Urine 5 (5-7)
[2024-01-10 11:48] LABS: Add Urine Microscopic? YES; Leukocyte Esterase Urine Trace (Negative); Urobilinogen Urine 1 mg/dL (Negative)
[2024-01-10 12:15] LABS: Add Urine Culture? Yes; Bacteria Urine TRACE /hpf; Hyaline Casts Urine 0-4 /lpf; RBC Urine 0-4 /hpf (0-2); Squamous Epithelial Cell Urine 0-4 /hpf (0-5); Transitional Epi Cells Urine 0-4 /hpf; WBC Urine 15-25 /hpf (0-5)
[2024-01-10 12:33] VITALS: BP 138/83; O2SAT 96
--- NOTE | 2024-01-11 13:43 | PC.SOCIAL ---
Spoke with patient's son and obtained HH choice. Orders faxed to [facility]. [facility] accepts. Patient's son provided resources and education regarding private paying for [facility].
== END 2024-01-10 13:14 | disposition home or self-care (01) ==
PROVIDERS: Emergency Provider Family Medicine; PCP Family Medicine
DX: R53.1 Weakness (principal); N30.90 Cystitis, unspecified without hematuria; Z86.73 Personal history of transient ischemic attack (TIA), and cerebral infarction without residual deficits; Z79.02 Long term (current) use of antithrombotics/antiplatelets; Z79.82 Long term (current) use of aspirin; E11.9 Type 2 diabetes mellitus without complications; I10 Essential (primary) hypertension; E78.5 Hyperlipidemia, unspecified
CPT/HCPCS: 36415; 71045; 80053; 81001; 82550; 83605; 83735; 84484; 85025; 87086; 93005; 99285

== ENCOUNTER 2024-05-29 12:30 | Emergency (ER) | payer MEDICARE, BC, SELFPAY ==
[2024-05-29 12:31] VITALS: BP 168/117; PULSE 81; RESP 18; TEMP 36.5; O2SAT 98; BMI 27.1
[2024-05-29 12:48] LABS: Glucose Point of Care 442 mg/dL (70-110)
--- NOTE | 2024-05-29 12:51 | PC.PHAR ---
patients med list was outdated, patient has no current medications as of now. Everything before was short therapy
--- NOTE | 2024-05-29 12:57 | W.ED.SKABFB ---
HPI - Skin/Abscess/Foreign Bdy General: Chief complaint: Skin/Abscess/Foreign Body Stated complaint: infection Time Seen by Provider: 05/29/24 12:32 Source: patient and EMS Mode of arrival: EMS Limitations: no limitations History of Present Illness: 83-year-old male who states that he has had erythema along with some drainage to the glans along with his foreskin of his penis for the last month to month. States been using some creams but has an improvement. Has had some slight pain he is a history of diabetes his blood sugar was in the 500s with EMS. He denies any dysuria denies any worse improving factors. Related Data Previous Rx's Medication Instructions Recorded clotrimazole 1 % topical cream 1 applic topical BID 2 weeks #15 05/29/24 grams Allergies Allergy/AdvReac Type Severity Reaction Status Date / Time No Known Allergies Allergy Verified 11/03/23 10:33 [facility] ED PFS: Medical History Chronic atrial fibrillation Seizure disorder Diabetes type 2 with atherosclerosis of arteries of extremities HTN (hypertension) Hyperlipemia Hx of stroke without residual deficits (~08/2019) Fall (on) (from) other stairs and steps, initial encounter Surgical History H/O heart artery stent Social History Smoking and tobacco/nicotine status: never used tobacco/nicotine Alcohol intake: former Substance/Drug Use: never Course Vital Signs: Vital signs: Vital Signs Temperature 97.7 F 05/29/24 12:31 Pulse Rate 81 05/29/24 12:31 Respiratory Rate 18 05/29/24 12:31 Blood Pressure 168/117 05/29/24 12:31 Pulse Oximetry 98 05/29/24 12:31 Oxygen Delivery Me thod Room Air 05/29/24 12:31 MDM - Skin/Abscess/Foreign Bdy Medicial Decision Making Patient presents here with concern erythema his foreskin and glans of his penis 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 He is stable for discharge return if worsening Medical Records I reviewed the patient's medical records. Lab Data I reviewed the patient's lab results. 05/29/24 13:00 05/29/24 13:00 Laboratory Results WBC 5.54 10^3/uL (3.29-11.43) 05/29/24 13:00 RBC 5.12 10^6/uL (3.85-5.65) 05/29/24 13:00 Hgb 14.90 g/dL (11.27-16.99) 05/29/24 13:00 Hct 46.5 % (37-53) 05/29/24 13:00 MCV 90.8 fl (82-101) 05/29/24 13:00 MCH 29.1 pg (27-33) 05/29/24 13:00 MCHC 32.0 g/dL (30-55) 05/29/24 13:00 RDW 12.7 % (12.1-15.1) 05/29/24 13:00 Plt Count 246 10^3/cmm (157-399) 05/29/24 13:00 MPV 10.6 fL (7.4-10.4) H 05/29/24 13:00 Neut % (Auto) 64.3 % 05/29/24 13:00 Lymph % (Auto) 23.6 % 05/29/24 13:00 [place] % (Auto) 7.9 % 05/29/24 13:00 Eos % (Auto) 3.1 % 05/29/24 13:00 Baso % (Auto) 0.9 % 05/29/24 13:00 Neut # (Auto) 3.56 10^3/uL (1.8-7.7) 05/29/24 13:00 Lymph # (Auto) 1.3 10^3/uL (0.8-4.8) 05/29/24 13:00 [place] # (Auto) 0.4 10^3/uL (0.2-0.9) 05/29/24 13:00 Eos # (Auto) 0.2 10^3/uL (0.0-0.8) 05/29/24 13:00 Baso # (Auto) 0.1 10^3/uL (0.0-0.1) 05/29/24 13:00 Nucleated RBC % (auto) 0 % 05/29/24 13:00 Nucleated RBCs # 0.0 /100WBC 05/29/24 13:00 Sodium 132 mmol/L (136-145) L 05/29/24 13:00 Potassium 4.3 mmol/L (3.5-5.1) 05/29/24 13:00 Chloride 95 mmol/L (98-107) L 05/29/24 13:00 Carbon Dioxide 27 mmol/L (22-29) 05/29/24 13:00 Anion Gap 14.3 (5-19) 05/29/24 13:00 BUN 26 mg/dL (8-23) H 05/29/24 13:00 Creatinine 1.6 mg/dL (0.7-1.2) H 05/29/24 13:00 GFR Calculation Not Reportable 05/29/24 13:00 Glucose 446 mg/dL (65-115) H 05/29/24 13:00 POC Glucose 352 mg/dL (70-110) H 05/29/24 14:46 Calculated Osmolality 298 mOsm/kg (285-295) H 05/29/24 13:00 Calcium 8.9 mg/dL (8.5-10.5) 05/29/24 13:00 Total Bilirubin 0.5 mg/dL (0.15-1.2) 05/29/24 13:00 AST 13 U/L (0-40) 05/29/24 13:00 ALT 7 U/L (0-41) 05/29/24 13:00 Alkaline Phosphatase 171 U/L (40-130) H 05/29/24 13:00 C-Reactive Protein 13.6 mg/L (0.0-4.9) H 05/29/24 13:00 Total Protein 6.7 g/dL (6.6-8.7) 05/29/24 13:00 Albumin 3.5 g/dL (3.5-5.2) 05/29/24 13:00 Globulin 3.2 g/dL (1.3-4.6) 05/29/24 13:00 No radiology studies performed this visit Discharge Plan Discharge Patient Disposition: Home Clinical Impression: Balanoposthitis, Hyperglycemia Condition: Stable Prescriptions: New clotrimazole 1 % cream 1 applic topical BID 14 Days Qty: 15 0RF Discharge Orders: Discharge ED (Routine); Ordered 05/29/24 Ordered By: Shadi Enriquez Referrals: Conchis Gonzalez MD [Primary Care Provider] - Discharge Diet: Advance as tolerated Discharge Activity: Resume usual activity Patient Instructions: Balanoposthitis (ED) Coding Level of Care Code ED Beveling Machine Operator for Breanne Justice
[2024-05-29 13:07] VITALS: BP 167/95; PULSE 77; O2SAT 98
[2024-05-29 13:20] LABS: Basophils # 0.1 10^3/uL (0.0-0.1); Basophils % 0.9 %; Eosinophils # 0.2 10^3/uL (0.0-0.8); Eosinophils % 3.1 %; Hematocrit 46.5 % (37-53); Lymphocytes # 1.3 10^3/uL (0.8-4.8); Lymphocytes % 23.6 %; Mean Corpuscular Hemoglobin 29.1 pg (27-33); Mean Corpuscular Volume 90.8 fl (82-101); Mean Platelet Volume 10.6 fL (7.4-10.4); Monocytes # 0.4 10^3/uL (0.2-0.9); Monocytes % 7.9 %; Neutrophils # 3.56 10^3/uL (1.8-7.7); Neutrophils % 64.3 %; Nucleated Red Blood Cells % 0 %; Platelet Count 246 10^3/cmm (157-399); Red Blood Count 5.12 10^6/uL (3.85-5.65); Red Cell Distribution Width 12.7 % (12.1-15.1); White Blood Count 5.54 10^3/uL (3.29-11.43)
[2024-05-29 13:38] LABS: Alanine Aminotransferase 7 U/L (0-41); Albumin Level 3.5 g/dL (3.5-5.2); Alkaline Phosphatase 171 U/L (40-130); Anion Gap 14.3 (5-19); Aspartate Amino Transferase 13 U/L (0-40); Blood Urea Nitrogen 26 mg/dL (8-23); C Reactive Protein 13.6 mg/L (0.0-4.9); Calcium 8.9 mg/dL (8.5-10.5); Carbon Dioxide 27 mmol/L (22-29); Chloride 95 mmol/L (98-107); Globulin 3.2 g/dL (1.3-4.6); Glucose 446 mg/dL (65-115); Osmolality Calculated 298 mOsm/kg (285-295); Potassium 4.3 mmol/L (3.5-5.1); Sodium 132 mmol/L (136-145); Total Bilirubin 0.5 mg/dL (0.15-1.2); Total Protein 6.7 g/dL (6.6-8.7)
[2024-05-29 13:44] LABS: Creatinine Clr Calc Pharmacy 42.4304
[2024-05-29] MEDS: insulin regular-human 100 units/1 mL 10 UNIT IVP (14:06)
[2024-05-29 14:13] LABS: Glucose Point of Care 415 mg/dL (70-110)
[2024-05-29 14:30] VITALS: BP 148/84; PULSE 78; O2SAT 98
[2024-05-29 14:52] LABS: Glucose Point of Care 352 mg/dL (70-110)
[2024-05-29 15:00] VITALS: BP 151/98; PULSE 71; O2SAT 98
[2024-05-29 15:30] VITALS: BP 145/97; PULSE 73; O2SAT 98
[2024-05-29] MEDS: fluconazole 100 mg Tablet 150 MG PO (15:49)
[2024-05-29 15:56] VITALS: BP 148/91; PULSE 75; O2SAT 98
--- NOTE | 2024-05-30 06:47 | DCPLANNER ---
Urology referral sent to [facility] urology
== END 2024-05-29 15:57 | disposition home or self-care (01) ==
PROVIDERS: Emergency Provider Emergency Medicine; PCP Family Medicine
DX: N47.6 Balanoposthitis (principal); E11.65 Type 2 diabetes mellitus with hyperglycemia; E11.51 Type 2 diabetes mellitus with diabetic peripheral angiopathy without gangrene; I10 Essential (primary) hypertension; Z86.73 Personal history of transient ischemic attack (TIA), and cerebral infarction without residual deficits; E78.5 Hyperlipidemia, unspecified
CPT/HCPCS: 36416; 80053; 82962; 85025; 86140; 96374; 99284; J1815